=== PATIENT | female | born 1970 | race Two or more races ===

== ENCOUNTER 2024-10-23 18:13 | Emergency (ER) | payer OTHER ==
[~2024-10-23] VITALS: Ht 162.6 cm; Wt 104.0 kg
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
[2024-10-23 20:00] VITALS: BP 133/79; TEMP 98.5
[2024-10-23] MEDS: HYDROcodone-ACET 5/325MG TAB PO ONE (20:21)
[2024-10-23] MEDS: IBUPROFEN 600 MG TAB PO ONE (20:21)
[2024-10-23 20:27] VITALS: PULSE 93; RESP 16; O2SAT 96
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
== END 2024-10-23 22:34 | disposition home or self-care (01) ==
LOC: ER 18:13
DX: S13.4XXA Sprain of ligaments of cervical spine, initial encounter (principal); S39.012A Strain of muscle, fascia and tendon of lower back, initial encounter; Z88.1 Allergy status to other antibiotic agents; V89.2XXA Person injured in unspecified motor-vehicle accident, traffic, initial encounter; Y93.89 Activity, other specified; Y92.410 Unspecified street and highway as the place of occurrence of the external cause; Y99.8 Other external cause status
CPT/HCPCS: 72040; 72100